=== PATIENT | male | born 2005 | race Caucasian/White ===

== ENCOUNTER 2023-05-06 14:45 | Outpatient (RCR) | payer OTHER, SELFPAY ==
--- NOTE | 2023-04-26 15:41 | PT.OPDN ---
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 Pt continues to complain of R tibial pain with running, has concerns of a stress fracture. Pain started two weeks ago and has gotten progressively worse since then . Preferred Name Lance Home Exercise Home Exercise Comments [id number] Objective Other/Pertinent Objective R Hip ROM Flexion - 125 Abduction - 45 IR/ER - 35/30 Extension - 10 L Hip ROM Flexion - 125 Abduction - 45 IR/ER - 40/22 Extension - 10 R knee ROM - WNL L knee ROM - WNL R Hip Strength Flexion - 4+/5 MMT Abduction - 5/5 MMT Adduction - 5/5 MMT IR - 5/5 MMT ER - 5/5 MMT Extension - 5/5 MMT L Hip Strength Flexion - 4+/5 MMT Abduction - 4+/5 MMT Adduction - 5/5 MMT IR - 5/5 MMT ER - 5/5 MMT Extension - 5/5 MMT R knee Extension - 5/5 MMT R Knee Flexion - 5/5 MMT L knee Extension - 5/5 MMT L knee Flexion - 5/5 MMT R ankle DF - 5/5 MMT L ankle DF - 5/5 MMT Palpation: pt reports pain/ tenderness with palpation to L adductor bundle, iliacus, rectus femoris origin Patient Instructed in Risks/Benefits Yes Therapeutic Exercise Therapeutic Exercise Minutes (minutes) 45 Therapeutic Exercise: To Restore Dynamic warm-up, jogging, high Functional Status knees, butt kicks, shuffle, grapevine Dynamic mountain climber with sliders 2 x 20 ea Side plank w/ SLR 2 x 20 ea TRX split squat 2 x 15 ea Bridge with resistance lower elwha 2 x 15 SL stance on Bosu with ball toss, trampoline toss x 6 min ea leg Treatment Minutes Timed Code Treatment Minutes 45 Total Treatment Time 45 Billing Units Therapeutic Exercise Units 3 Assessment/Impression Assessment/Impression Pt tolerated today's session well. Hip strength grossly measures 5/5 MMT bilaterally in all motions with minimal deficits noted (see objective) . Tibial stress test is positive for pinpoint tenderness approximately assisted down the length of the R tibia. His pain is at the medial border of the tibia. His pain is made worse with running, and he is also experiencing pain at night and throughout most of the day. Would recommend plain film imaging to determine if stress fracture exists. We discussed the possibility that he has a R tibial stress fracture, and called Dr. Cordero to discuss imaging. Co-Signed by Rafael Orona, [place] DPT [id number] Plan of Care Physical Therapy Goals STG - To be completed in 2-3 weeks: 1. Pt will report reduction in L groin pain by factor of 2 with all activities so that he may run for exercise with tolerable level of pain. MET 2. Pt will report consistent performance of stretching and foam rolling exercises to help reduce tissue tension in L hip with running. MET LTG - To be completed in 6 weeks: 1. Pt to be I with HEP so that he may I manage progression of symptoms. 2. Pt will demo 5/5 MTM for all LE motions bilaterally to restore appropriate coordination of muscles around hips with all activities including running. 3. 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 Daily Plan of Care Continue per POC Student Supervision Licensed PT Directed/Approved Treatment, Reviewed POC with Patient,Made Contact with Patient, Participated in Treatment Documentation Reviewed By Health Teacher Yes
== END 2023-05-18 09:59 | disposition home or self-care (01) ==
PROVIDERS: PCP Family Medicine; Visit Provider Family Medicine
DX: M76.892 Other specified enthesopathies of left lower limb, excluding foot (principal); M25.552 Pain in left hip; Z51.89 Encounter for other specified aftercare
CPT/HCPCS: 97110; 97140; 97161

== ENCOUNTER 2024-04-13 15:30 | Outpatient (RCR) | payer OTHER, SELFPAY ==
--- NOTE | 2024-04-14 09:39 | PT.OPDN ---
PT [facility] Daily Note PT [facility] Daily Note Start: 03/07/24 12:54 Freq: Status: Active Protocol: Document 04/13/24 12:50 CJT (Rec: 04/13/24 12:55 CJT [id number]) E-signed By Rafael Orona, PT PT OP Daily Progress Note Visit Information Note Type Daily Note Visit Number 9 Insurance Authorized Visits auth pending Physician Authorized Visits eval and treat Insurance Information Recert Due Date 06/05/24 Insurance Name [facility] Medical Diagnosis M62.9 - nontraumatic tear of plantar fascia M79.671 - R foot pain Treating Diagnosis M79.671 - R foot pain Referring Stefanie Salazar Subjective Subjective Pt notes his lateral leg seems to be feeling a bit better. Has been self-treating via STM with tennis ball, foam roller , massage gun, scraping, and stretching on his own. Preferred Name Lance Home Exercise Home Exercise Comments [id number] Objective Other/Pertinent Objective Pre test - R leg circumferential measurements (pre-test, post- test) 5cm inferior to fibular head: 34 cm, 34cm Mid-Oconnell: 27.25 cm, 27.75 cm 5cm superior to lateral malleolus: 20.25 cm, 20.5 cm L leg circumferential measurements 5cm inferior to fibular head: 32.5 cm, 33 cm Mid-Oconnell: 26 cm, 26 cm 5cm superior to lateral malleolus: 19.5 cm, 20 cm Patient Instructed in Risks/Benefits Yes Therapeutic Exercise Therapeutic Exercise Minutes (minutes) 18 Therapeutic Exercise: To Restore Treadmill (running): 7.2 mph, Functional Status 0.0% incline 3:50 - pt notes increased pressure in lateral leg 17:10 - pt requests to stop Treatment Minutes Untimed Code Treatment Minutes 25 Timed Code Treatment Minutes 18 Total Treatment Time 43 Billing Units Therapeutic Exercise Units 1 Assessment/Impression Assessment/Impression Lance continues to experience significant pain and swelling in the lateral R leg with actively. Today i had Lance run on the treadmill in our clinic and took circumferential measurements B LEs to track his swelling. To my surprise, the measurements showed less swelling than I had predicted. However, pts lateral compartment on R did demonstrate significant swelling and was hard to the touch, especially compared to that of the L LE. We took pictures in the clinic today of both legs following exercise as his swelling is clearly visible. 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 While we have been treating his pain with strengthening, STM, IASTM, ice , stretching, etc., he is not observing any resolution in his symptoms. Something is just not right with Lance's lateral compartment. I will submit pictures of pts legs post-exercise to Everardo via [employer] and call orthopedics to discuss further evaluation. Plan of Care Physical Therapy Goals STG - To be completed in 4 weeks: 1. Pt to report reduction in R foot and lateral ankle pain by factor of 2 so that he may continue to run up to 1 mile at a time with manageable level of pain. LTG - To be completed in 8 weeks: 1. Pt to be I with HEP so that he may I manage progression of symptoms. 2. 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 Pt will demo at least 8 degrees of R ankle DF with knee extended as indication of reduced tissue tension and increased tissue length of R gastroc. Daily Plan of Care Change POC; See Comments Daily Plan of Care Comments Hold chart
== END 2024-05-30 12:49 | disposition home or self-care (01) ==
PROVIDERS: PCP Family Medicine; Visit Provider Podiatrist Foot & Ankle Surgery
DX: M62.9 Disorder of muscle, unspecified (principal); M79.671 Pain in right foot; Z51.89 Encounter for other specified aftercare
CPT/HCPCS: 97032; 97110; 97140; 97161

== ENCOUNTER 2024-04-26 07:08 | Day surgery (SDC) | payer OTHER, SELFPAY ==
[2024-04-26] VITALS (12 sets, daily range): BP systolic 91–128; BP diastolic 42–99; PULSE 49–74; RESP 16–18; TEMP 35.9–36.5; O2SAT 96–100; BMI 21.1
--- NOTE | 2024-04-26 07:35 | W.PM.H&PU ---
History & Physical Update History & Physical Update H&P Reviewed and patient assessed: No changes noted
[2024-04-26] MEDS: LACTATED RINGERS 1000 ML 1,000 ML 100 ML IV (07:59)
[2024-04-26] MEDS: SODIUM CHLORIDE 0.9 % (FLUSH) 10 ML SYRINGE IVF (07:59)
[2024-04-26] MEDS: CEFAZOLIN 2 GM in 0.9 % SODIUM CHLORIDE Mini-bag 100 ML IVPB (08:55)
--- NOTE | 2024-04-26 09:35 | P.ORPRC_ITS ---
Procedure Note Date of procedure: 04/26/24 Procedure: PREOPERATIVE DIAGNOSIS: 1. Right leg chronic exertional compartment syndrome with elevated anterior compartment pressure measurements confirmed POSTOPERATIVE DIAGNOSIS: 1. 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 Right leg anterior and lateral compartment fasciotomy SURGEON: Juice Martines MD. SKID ROAD WORKER: Everardo Izaguirre PA-C - Of note, a skilled physiotherapist's assistant was critical for this case to aid in patient positioning, tissue retraction, limb manipulation/positioning, and closure. 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 History was consistent with chronic exertional compartment syndrome. He was sent for compartment pressure measurements after 20-30 minutes of running. His contralateral leg and the posterior compartments on the ipsilateral right leg all showed normal measurements of 13-18 mmHg following exercise. However, the anterior compartment measured 113mmHg. Given this confirmation, patient was counseled regarding the pros and cons of ongoing nonoperative management versus surgical intervention. He elected for the surgical release of the anterior and lateral compartments of this right leg. FINDINGS: Superficial branch of the peroneal nerve was identified as it exited the fascia on the lateral distal 1/3 of the leg and protected. The fascia was released both proximally and distally both anterior and posterior to this nerve allowing us to release both the anterior and lateral compartments. DESCRIPTION OF PROCEDURE: Following a thorough discussion of risks, benefits, and alternatives consent was obtained and the right leg was marked. The patient was brought to the operating room and placed supine on the operating table. Induction of anesthesia was undertaken. 2 g IV Ancef was administered within 1 hr of incision preoperatively. Proper time-out was performed identifying proper patient, site, procedure. The operative extremity was prepped and draped in the appropriate sterile fashion using ChloraPrep after the patient was positioned supine with all bony prominences well padded. A longitudinal incision was made along the distal 1/3 of the anterolateral leg approximately 3 finger breaths lateral to the tibial crest. 10 cm proximal to lateral malleolus tip was measured for rough identification of the superficial branch of the peroneal nerve. Sharp incision through skin over approximately 5 cm and blunt dissection subcutaneous tissue allowed us to identify the superficial fascia which also identified the superficial branch of peroneal nerve exiting the fascia. We protected the nerve throughout the case. A small incision was made both anterior and posterior to this nerve branch with the 15 blade scalpel. Metzenbaum scissors was then utilized closed both superficial and deep to the fascia and then the scissors was minimally opened and the fascia split the length of the patient's leg both proximally and distally from approximately a couple cm distal to the fibular head down towards the lateral malleolus as far as length goes. Complete release was felt to be achieved. Thorough irrigation normal saline was performed. Tourniquet was released. Hemostasis confirmed. Closure performed with 3-0 nylon in interrupted fashion. Dressings were applied. The patient was woken per Anesthesia transferred to recovery room in stable condition. PLAN: 1. Weight bear as tolerated operative extremity. 2. 23 hr perioperative antibiotics. 3. Ice. 4. Range of motion of ankle and knee as tolerated.
[2024-04-26] MEDS: BACITRACIN OINTMENT BULK TUBE 1 APPLIC TOPICAL (09:37)
[2024-04-26] MEDS: LACTATED RINGERS 1000 ML 1,000 ML 30 ML IV (10:10)
--- NOTE | 2024-04-26 10:14 | W.ANESCHARGE ---
Anesthesia Charges Start Date/Time Anesthesia Start Date: 04/26/24 Anesthesia Start Time: 08:52 Stop Date/Time Anesthesia Stop Date: 04/26/24 Anesthesia Stop Time: 09:56
[2024-04-26] MEDS: OXYCODONE 5 MG TABLET PO (11:00)
[2024-04-26] MEDS: hydrOXYzine pamoate 25 MG CAPSULE PO (11:00)
--- NOTE | 2024-04-26 11:54 | REH.PT ---
Patient seen post-op for fitting of crutches for home use. WBAT, patient demonstrates competence with crutches without need for training from PT. Crutch tip sheet provided, verbal reminder to not rest with crutches in B axilla to prevent nerve injury.
== END 2024-04-26 11:48 | disposition home or self-care (01) ==
PROVIDERS: PCP Physician Assistant Medical; Visit Provider Orthopaedic Surgery Sports Medicine
PROC: (CPT 27600; principal; 2024-04-26 09:00)
DX: T79.A21A Traumatic compartment syndrome of right lower extremity, initial encounter (principal)
CPT/HCPCS: 27600; 01470; A9270; J0690; J1100; J1885; J2405; J2704; J3010; J7120

== ENCOUNTER 2024-05-08 15:17 | Outpatient (CLI) | payer OTHER, SELFPAY ==
--- NOTE | 2024-05-08 15:30 | MR_ITS ---
[address] [address] Phone:?[phone] Fax:?[phone] Referring Physician Information: Juice Martines M.D. [id number] [facility] [address] Phone:?[phone] Fax:?[phone] Patient:Miguel Tejada D.O.B:?2005 Sex:?Male Phone:?[phone] [facility] MRN:?[id number] Exam Date:?05/08/2024 EXAM: MRI of the RIGHT ANKLE/HINDFOOT, without contrast CLINICAL: Right foot pain with history of prior surgery. COMPARISONS: None available. TECHNICAL: Multiplanar multisequence MRI of the right ankle/hindfoot was obtained. SEDATION: None. CONTRAST: None. FINDINGS: Achilles tendon: No tendinopathy or tear. No retrocalcaneal bursitis. There is increased edema within the pre-Achilles fat, nonspecific. Plantar fascia: There is thickening, irregularity and increased signal involving the central cord plantar fascia at the level of the anterior calcaneus measuring approximately 27 mm in AP dimension, 15 mm transverse dimension and 7 mm pericardial dimension as seen on sagittal series 5 image 18 and coronal series 3 image 22-30. There is mild adjacent soft tissue edema noted about the plantar fascia within this region. Tarsal tunnel: No masses identified. Sinus Tarsi:?Normal fat within the sinus tarsi without significant scar, synovitis, or mass lesion. Ligaments: Anterior talofibular: No injury. Calcaneofibular: No injury. Posterior talofibular: No injury. Syndesmotic:?The anterior inferior and posterior inferior tibiofibular ligaments are intact. Deltoid: The deep and superficial components of the deltoid ligament are intact. Spring: Intact. Bifurcate and calcaneocuboid: Intact. Flexor tendons: Posterior tibial: Normal. Flexor digitorum longus: Normal. Flexor hallucis longus: Normal. Peroneus brevis and longus: No tendinosis, tear or tenosynovitis. Extensor tendons: Tibialis anterior: Normal. Extensor hallucis longus: Normal. Extensor digitorum longus: Normal. Joints/Osseous structures: There is patchy increased bone marrow edema seen to involve the anterior talus and lateral navicular. No evidence of fracture or talar dome osteochondral lesion. No significant joint effusion. There is partially visualized increased edema involving the lateral ankle subcutaneous soft tissues. IMPRESSION: 1. Appearance of the central cord plantar fascia at the level of the anterior calcaneus may reflect sequelae of fascial injury and mild partial tearing versus fibromatosis. Recommend close clinical correlation with injury history. 2. Bone marrow edema involving the anterior talus and navicular may reflect osseous contusions or stress-related change. 3. No evidence of ligamentous injury, fracture or talar dome osteochondral lesion. 4. Partially visualized increased edema involving the lateral ankle subcutaneous soft tissues, nonspecific. [facility] Electronically signed on 05/09/2024 9:25:00 AM by Ken Gonzalez D.O. Addendum A Comparison MRI from 12/24/2023 and comparison x-rays dated 12/22/2023 were obtained and reviewed. Partial tearing is seen to involve the central cord plantar fascia on the prior MRI exam, which is decreased in length on the exam dated 05/08/2024 as compared to the prior exam dated 12/24/2023. Thickening and increased signal/residual partial tearing is now seen to involve the central cord plantar fascia at the level of the anterior calcaneus (previously extending more distally). Electronically signed on 05/10/2024 9:23:00 AM by Ken Gonzalez D.O.
== END 2024-05-08 15:18 | disposition home or self-care (01) ==
LOC: MRI 15:17
PROVIDERS: PCP Physician Assistant Medical; Visit Provider Orthopaedic Surgery Sports Medicine
DX: M79.671 Pain in right foot (principal); M79.A21 Nontraumatic compartment syndrome of right lower extremity; M62.9 Disorder of muscle, unspecified
CPT/HCPCS: 73718

== ENCOUNTER 2024-06-07 07:30 | Outpatient (RCR) | payer OTHER, SELFPAY | END 2024-07-24 08:47 | disposition home or self-care (01) | PROVIDERS: Visit Provider Physician Assistant Surgical | DX: M79.A21 Nontraumatic compartment syndrome of right lower extremity (principal); Z51.89 Encounter for other specified aftercare | CPT/HCPCS: 97110; 97140; 97161 ==

== ENCOUNTER 2025-04-05 15:05 | Outpatient (CLI) | payer OTHER, SELFPAY | END 2025-04-05 15:06 | disposition home or self-care (01) | LOC: FRMREF 15:07 | PROVIDERS: PCP Physician Assistant Medical; Visit Provider Physician Assistant Medical | DX: G43.909 Migraine, unspecified, not intractable, without status migrainosus (principal); R11.2 Nausea with vomiting, unspecified | CPT/HCPCS: 80053; 82728; 84443 ==

== ENCOUNTER 2025-04-13 14:35 | Outpatient (CLI) | payer OTHER, SELFPAY ==
--- NOTE | 2025-04-13 14:45 | CRLHL7_ITS ---
For Patients: As a result of the Century Cures Act, medical imaging exams and procedure reports are released immediately into your electronic medical record. You may view this report before your referring provider. If you have questions, please contact your health care provider. Indication: Head pain. Technique: Multiplanar multisequence noncontrast MR images of the brain. Comparison: None. Findings: The ventricles and sulci are within normal limits for patient age. No mass effect or midline shift. No parenchymal signal abnormalities. No intracranial hemorrhage or pathologic extra-axial fluid collection. No diffusion restriction to suggest acute infarction. The major arterial flow voids of the skull base are preserved. Globes are symmetric. Mild paranasal sinus mucosal thickening. Trace mastoid fluid bilaterally. Impression: Unremarkable noncontrast MRI of the brain. Dictated by Mihir Campoverde MD @ 04/13/2025 4:11:45 PM (Electronically Signed)
== END 2025-04-13 14:36 | disposition home or self-care (01) ==
LOC: MRI 14:35
PROVIDERS: PCP Physician Assistant Medical; Visit Provider Physician Assistant Medical
DX: G43.909 Migraine, unspecified, not intractable, without status migrainosus (principal)
CPT/HCPCS: 70551